=== PATIENT | female | born 2000 ===

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

== ENCOUNTER 2021-02-11 23:21 | Emergency (ER) | payer OTHER, BC ==
[~2021-02-11] VITALS: Ht 175.3 cm; Wt 72.6 kg
[2021-02-12] MEDS ORDERED: CYCL10 PO (00:49)
== END 2021-02-12 01:25 | disposition home or self-care (01) ==
LOC: ER 23:21
DX: R51.9 Headache, unspecified (principal); M54.2 Cervicalgia; M54.9 Dorsalgia, unspecified; V49.9XXA Car occupant (driver) (passenger) injured in unspecified traffic accident, initial encounter
CPT/HCPCS: 70450; 96372; 99284-25; A9270; J1885